=== PATIENT | female | born 1955 | race Caucasian/White ===

== ENCOUNTER 2021-04-07 13:37 | Emergency (ER) | payer MEDICARE, OTHER ==
[2021-04-07] MEDS ORDERED: EPINEPHRINE 1MG/ML AMP ONE (13:41)
[2021-04-07] MEDS ORDERED: Sodium Chloride 0.9% 1000 ML 1,000 ML ONE (13:47)
[2021-04-07] MEDS ORDERED: solu-MEDROL ONE (13:47)
[2021-04-07] MEDS ORDERED: Pepcid 20 MG VIAL IV ONE ×2 (13:47→13:57)
[2021-04-07] MEDS ORDERED: BENADRYL 50 MG/ML ONE (13:47)
[2021-04-07] MEDS ORDERED: Sterile H2O 10 ml IJ ONE (13:47)
[2021-04-07] MEDS ORDERED: solu-MEDROL 125 MG, Sterile H2O 10 ml 2 ML IV ONE ×2 (13:57)
[2021-04-07] MEDS ORDERED: BENADRYL 50 MG/ML IV ONE (13:57)
[2021-04-07] MEDS ORDERED: Sodium Chloride 0.9% 1000 ML 1,000 ML IV SCH (14:00)
--- NOTE | 2021-04-07 14:03 | ERPHSYRPT ---
- History of Present Illness Time Seen by Provider: 04/07/21 13:38 Source: patient Exam Limitations: no limitations Patient Subjective Stated Complaint: I got stung 15 times by bees moving today Triage Nursing Assessment: Presents aaox3, c/o multiple bee stings to face and other areas of body. c/o burning all over. No sob, c/o left jaw swollen. Patient walked in. No resp distress, lungs clear. patient with redness to face, neck, multiple bee stings noted. Physician History: 65 years old female who presented in the ER with multiple bee stings on her right lower extremity, hand and on face prior to arrival. She has swelling of the lower lip where she got stung multiple times. Complaining of mild jaw pain but no difficulty breathing or swallowing. Patient is very anxious. She is complaining of burning sensation all over and is unable to find a comfortable position. Not tachypneic or tachycardic on presentation and blood pressure stable. No signs of anaphylaxis. Home Medications: Levothyroxine Sodium 50 Mcg [Synthroid 50 Mcg] 50 mcg PO DAILY 04/07/21 [History] lisinopriL [Lisinopril] 10 mg PO DAILY 04/07/21 [History] Hx Tetanus, Diphtheria Vaccination/Date Given: Yes Hx Influenza Vaccination/Date Given: Yes Hx Pneumococcal Vaccination/Date Given: Yes Travel Risk - International Travel Have you traveled outside of the country in past 3 weeks: No - Coronavirus Screening Are you exhibiting any of the following symptoms?: No Close contact with a COVID-19 positive Pt in past 14-21 Days: No - Vaccine Status Have you recieved a Covid-19 vaccination: Yes [employer]: Moderna - Vaccination Dates Date of 2cond Vaccination (if applicable): Nov 30 2020 - Review of Systems Constitutional: No Symptoms Eyes: No Symptoms Ears, Nose, & Throat: Mouth Pain (Lower lip swelling with sting moreno) Respiratory: No Symptoms Cardiac: No Symptoms Abdominal/Gastrointestinal: No Symptoms Genitourinary Symptoms: No Symptoms Musculoskeletal: No Symptoms Skin: Rash (Multiple bee stings on the extremities) Neurological: No Symptoms Psychological: Anxiety Endocrine: No Symptoms Hematologic/Lymphatic: No Symptoms Immunological/Allergic: No Symptoms - Past Medical History Pertinent Past Medical History: Yes Neurological History: No Pertinent History Cardiac History: No Pertinent History Respiratory History: No Pertinent History Endocrine Medical History: No Pertinent History Musculoskeletal History: No Pertinent History GI Medical History: No Pertinent History History: No Pertinent History Psycho-Social History: No Pertinent History Female Reproductive Disorders: No Pertinent History - Past Surgical History Past Surgical History: No Neuro Surgical History: No Pertinent History Cardiac: No Pertinent History Respiratory: No Pertinent History Gastrointestinal: No Pertinent History Genitourinary: No Pertinent History Musculoskeletal: No Pertinent History Female Surgical History: No Pertinent History Other Surgical History: Tubal ligation. - Social History Smoking Status: Never smoker Drug Use: none - Female History Hx Last Menstrual Period: postmenopausal - Nursing Vital Signs Nursing Vital Signs: Initial Vital Signs Temperature 97.8 F 04/07/21 13:47 Pulse Rate 90 04/07/21 13:47 Respiratory Rate 22 04/07/21 13:47 Blood Pressure 168/88 04/07/21 13:47 O2 Sat by Pulse Oximetry 96 04/07/21 13:47 Pain Scale Pain Intensity 5 - Physical Exam General Appearance: no apparent distress, alert Eye Exam: PERRL/EOMI, eyes nml inspection Ears, Nose, Throat Exam: TMs normal, pharynx normal, other (Lower lip swelling but no swelling floor of mouth/tongue. Hypo-/posterior pharynx well visible) Respiratory Exam: normal breath sounds, lungs clear Cardiovascular Exam: regular rate/rhythm, normal heart sounds Back Exam: normal inspection, normal range of motion Extremity Exam: normal range of motion, pelvis stable Neurologic Exam: alert, oriented x 3, cooperative, utility pipe layer II-XII nml as tested Skin Exam: rash, other (Multiple sting san extremities/face) SpO2 Interpretation: normal SpO2: 96 O2 Delivery: Room Air Ordered Tests: Active Orders 24 hr Category Date Time Status IV Insertion STAT Care 04/07/21 13:56 Completed Medication Summary Discontinued Medications Generic Name Dose Route Start Last Admin Trade Name Freq PRN Reason Stop Dose Admin Methylprednisolone Sodium 0 mg 04/07/21 13:57 04/07/21 13:59 Succinate 125 mg/ Sterile IV 04/07/21 13:58 125 mg Water 2 ml STAT ONE Administration Diphenhydramine HCl Confirm 04/07/21 13:47 Benadryl 50 Mg/Ml Administered 04/07/21 13:48 Dose 50 mg .ROUTE .STK-MED ONE Diphenhydramine HCl 50 mg 04/07/21 13:57 04/07/21 13:59 Benadryl 50 Mg/Ml IV 04/07/21 13:58 50 mg STAT ONE Administration Epinephrine HCl Confirm 04/07/21 13:41 Epinephrine 1mg/Ml Amp Administered 04/07/21 13:42 Dose 1 mg .ROUTE .STK-MED ONE Famotidine Confirm 04/07/21 13:47 Pepcid 20 Mg Vial Administered 04/07/21 13:48 Dose 40 mg IV .STK-MED ONE Famotidine 40 mg 04/07/21 13:57 04/07/21 13:59 Pepcid 20 Mg Vial IV 04/07/21 13:58 40 mg STAT ONE Administration Sodium Chloride Confirm 04/07/21 13:47 Sodium Chloride 0.9% 1000 Ml Administered 04/07/21 13:48 Dose 1,000 mls @ ud .ROUTE .STK-MED ONE Sodium Chloride 1,000 mls @ 100 mls/hr 04/07/21 14:00 04/07/21 13:58 Sodium Chloride 0.9% 1000 Ml IV 05/07/21 13:59 100 mls/hr .Q10H MARGARITO Administration Methylprednisolone Sodium Succinate Confirm 04/07/21 13:47 Solu-Medrol Administered 04/07/21 13:48 Dose 125 mg .ROUTE .STK-MED ONE Sterile Water Confirm 04/07/21 13:47 Sterile H2o 10 Ml Administered 04/07/21 13:48 Dose 10 ml IJ .STK-MED ONE Triamcinolone Acetonide 15 gm 04/07/21 15:00 04/07/21 15:00 Kenalog 0.1% Cream 15 Gm TP 04/07/21 15:01 15 gm STAT ONE Administration - Progress Progress: improved, re-examined Progress Note: 04/07/21 15:43 Patient was very anxious on presentation. She is given Solu-Medrol/Benadryl and Pepcid, on reevaluation she started to feel better. She is maintaining her airway very well. No signs of anaphylaxis. Stable vitals. Observed for almost 2 hours, remained stable and improved. We will continue with these meds to go home and outpatient follow-up recommended. Counseled pt/family regarding: diagnosis, need for follow-up - Departure Departure Disposition: Home Clinical Impression: Bee sting reaction Qualifiers: Encounter type: initial encounter Injury intent: accidental or unintentional Qualified Code(s): T63.441A - Toxic effect of venom of bees, accidental (unintentional), initial encounter Condition: Stable Critical Care Time: No Referrals: ADAMARIS PERERA MD [Primary Care Provider] - (2 days for reevaluation) Instructions: Anaphylaxis, Angioedema (DC) Additional Instructions: Continue with steroid, Pepcid and Benadryl as recommended. Follow-up with primary care for reevaluation. Use EpiPen as needed. Return to ER for worsening itching, difficulty breathing swallowing/throat closing/choking sensations. Prescriptions: Diphenhydramine HCl 25 mg [Benadryl 25 mg Capsule] 25 mg PO Q4H PRN PRN #20 cap PRN Reason: Allergies Prednisone 20 mg [Deltasone 20 mg] 60 mg PO DAILY 5 Days #15 tablet Epinephrine [Epipen] 0.3 mg IM DIRECTIONS UNKNOWN 1 Days #0.3 ml Famotidine 20 mg [Pepcid 20 MG] 20 mg PO BID #10 tablet Albuterol 8 gm Mdi Hfa [Ventolin Hfa MDI] 8 gm IH Q4H #1 gm
[2021-04-07] MEDS ORDERED: KENALOG 0.1% CREAM 15 GM TP ONE (15:00)
[2021-04-07 15:05] VITALS: BP 154/77
[2021-04-07 15:53] VITALS: PULSE 92
[2021-04-07 16:43] VITALS: O2SAT 96
== END 2021-04-07 15:58 | disposition home or self-care (01) ==
LOC: ED 13:37
DX: T63.441A Toxic effect of venom of bees, accidental (unintentional), initial encounter (principal)
CPT/HCPCS: 36000; 96374; 96375; 99284; 99291; J0171; J1200; J2930; A9270-GY